=== PATIENT | male | born 1990 | race Two or more races ===

== ENCOUNTER 2019-09-16 07:08 | Emergency (ER) | payer MEDICAID ==
[~2019-09-16] VITALS: Ht 170.2 cm; Wt 63.5 kg
[2019-09-16 07:14] VITALS: BP 147/94
[2019-09-16] MEDS ORDERED: cefTRIAXone SOD 1,000 MG VL IM ONE (07:45)
[2019-09-16] MEDS ORDERED: LIDOCAINE 1% HCL (LOCAL ANESTH.) INJ 20ML MDV ONE (07:48)
[2019-09-16] MEDS ORDERED: IBUPROFEN 800 MG TAB PO ONE (08:00)
== END 2019-09-16 08:12 | disposition home or self-care (01) ==
LOC: ER 07:08
DX: K04.7 Periapical abscess without sinus (principal)
CPT/HCPCS: 96372; 99283; J0696; J2001